=== PATIENT | female | born 1940 ===

== ENCOUNTER 2017-09-05 03:50 | Emergency (ER) | payer MEDICARE ==
[2017-09-05 06:26] LABS: Basophils % (Auto) 0.7 % (0.0-1.8); Eosinophils # (Auto) 0.1 K/mm3 (0.0-0.4); Eosinophils % (Auto) 1.7 % (0.0-4.3); Hematocrit 39.9 % (30.3-42.9); Hemoglobin 13.4 gm/dl (10.1-14.3); Lymphocytes # (Auto) 0.8 K/mm3 (1.2-5.4); Lymphocytes % (Auto) 18.6 % (13.4-35.0); Mean Corpuscular HGB Conc 34 % (30-34); Mean Corpuscular Hemoglobin 32 pg (28-32); Mean Corpuscular Volume 95 fl (79-97); Monocytes # (Auto) 0.5 K/mm3 (0.0-0.8); Platelet Count 179 K/mm3 (140-440); Red Blood Count 4.22 M/mm3 (3.65-5.03); Red Cell Distribution Width 13.6 % (13.2-15.2)
--- NOTE | 2017-09-05 06:34 | Emergency Department Report ---
ED Fall HPI - General Chief Complaint: Fall Stated Complaint: AMS Time Seen by Provider: 09/05/17 06:24 Source: patient, family, EMS (ems notes not available at time of chart dictation), RN notes reviewed Mode of arrival: Stretcher Limitations: Physical Limitation (patient has left knee pain, has difficulty walking.), Other (patient is a poor historian) - History of Present Illness Initial Comments: This is a 77-year-old female who is previously unknown to this provider. Her primary care doctor is Dr. Dowling at [facility] Past medical history includes genital herpes, thyroid disease, sleep disorder. The patient is brought to the hospital by EMS after she fell out of bed in the morning. This was a mechanical fall. Prior to the fall, the patient was not having any symptoms. After the fall she had some confusion and accidentally urinated on herself. The patient currently denies headache, neck pain, abdominal pain, shortness of breath, weakness, numbness, unsteady gait. She complained to the nurse of chest pain but denies a complaint of chest pain to this provider. As per her son, the patient has been mentioning chest pain on and off for the past few weeks. As per the patient's son, there is no vomiting, diaphoresis or shortness of breath. The patient's son cannot describe exacerbating or relieving factors of the pain, and qualitative features of the pain, does not know if the pain radiates. The patient to me states that she is not having any pain. The patient does complain of left knee Pain which does not radiate anywhere. 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 denies: headache, neck pain , numbness, weakness, chest paint, shortness of breath, abdominal pain, hematuria, lightheaded, vertigo, confusion - Related Data Home Medications Medication Instructions Recorded Confirmed Last Taken Acyclovir [Zovirax] 400 mg PO DAILY 09/05/17 09/05/17 Unknown Carvedilol [Coreg] 3.125 mg PO BID 09/05/17 09/05/17 Unknown Dicyclomine [Bentyl] 10 mg PO BID 09/05/17 09/05/17 Unknown Levothyroxine [Synthroid] 88 mcg PO QAM 09/05/17 09/05/17 Unknown Omeprazole 20 mg PO DAILY 09/05/17 09/05/17 Unknown Zolpidem [Ambien] 10 mg PO QHS PRN 09/05/17 09/05/17 Unknown Allergies Allergy/AdvReac Type Severity Reaction Status Date / Time No Known Allergies Allergy Unverified 09/05/17 04:08 ED Review of Systems ROS: Stated complaint: AMS Other details as noted in HPI Comment: All other systems reviewed and negative ED Past Medical Hx - Past Medical History Previous Medical History?: Yes - Surgical History Past Surgical History?: No - Social History Smoking Status: Never Smoker Substance Use Type: Alcohol - Medications Home Medications: Home Medications Medication Instructions Recorded Confirmed Last Taken Type Acyclovir [Zovirax] 400 mg PO DAILY 09/05/17 09/05/17 Unknown History Carvedilol [Coreg] 3.125 mg PO BID 09/05/17 09/05/17 Unknown History Dicyclomine [Bentyl] 10 mg PO BID 09/05/17 09/05/17 Unknown History Levothyroxine [Synthroid] 88 mcg PO QAM 09/05/17 09/05/17 Unknown History Omeprazole 20 mg PO DAILY 09/05/17 09/05/17 Unknown History Zolpidem [Ambien] 10 mg PO QHS PRN 09/05/17 09/05/17 Unknown History ED Physical Exam - General Limitations: No Limitations, Physical Limitation General appearance: alert, in no apparent distress - Head Head exam: Present: atraumatic, normocephalic - Eye Eye exam: Present: normal appearance, EOMI. Absent: nystagmus - ENT ENT exam: Present: normal exam, normal orophraynx, mucous membranes moist, normal external ear exam - Neck Neck exam: Present: normal inspection, full ROM - Respiratory Respiratory exam: Present: normal lung sounds bilaterally. Absent: respiratory distress - Cardiovascular Cardiovascular Exam: Present: regular rate, normal rhythm, normal heart sounds. Absent: bradycardia, tachycardia, irregular rhythm, systolic murmur, diastolic murmur, rubs, gallop - GI/Abdominal GI/Abdominal exam: Present: soft, normal bowel sounds. Absent: distended, tenderness, guarding, rebound, rigid, pulsatile mass - Extremities Exam Extremities exam: Present: normal inspection, tenderness, normal capillary refill, other (there is no long bony tenderness. There is left-sided anterior knee tenderness. The pelvis is stable. The compartments are soft. 2+ pulses noted in the bilateral upper and lower extremities.). Absent: pedal edema, joint swelling, calf tenderness - Back Exam Back exam: Present: normal inspection, full ROM. Absent: paraspinal tenderness , vertebral tenderness - Neurological Exam Neurological exam: Present: alert (visual acuity intact to finger counting, color perception, reading at a close distance), oriented X3, CN II-XII intact, other (Extraocular movements intact. Tongue midline. No facial droop. Facial sensation intact to light touch in the V1, V2, V3 distribution bilaterally. 5 and 5 strength in 4 extremities.. Sensation is intact to light touch in 4 extremities.). Absent: motor sensory deficit - Psychiatric Psychiatric exam: Present: normal affect, normal mood - Skin Skin exam: Present: warm, dry, intact, normal color. Absent: rash ED Course Vital Signs 09/05/17 09/05/17 09/05/17 04:03 05:45 06:00 Temperature 98 F 97.7 F Pulse Rate 78 59 L Respiratory 16 20 20 Rate Blood Pressure 140/82 Blood Pressure 140/65 [Right] O2 Sat by Pulse 94 100 100 Oximetry 09/05/17 09:21 Temperature Pulse Rate 73 Respiratory 16 Rate Blood Pressure Blood Pressure 159/72 [Right] O2 Sat by Pulse 96 Oximetry - Reevaluation(s) Reevaluation #1: 09/05/17 09:00 Case is presented to the community case manager, Miss Sola Ballard, who is going to help arrange outpatient physical therapy. Following is negative 2. Repeat EKG is pending. Urinalysis is pending. Reevaluation #2: 09/05/17 09:33 Vital signs have remained stable. Repeat EKG is unchanged from prior. Troponin is negative 2, the urinalysis does not demonstrate urinary tract infection. There is asymptomatic bacteriuria. Patient has been seen and evaluated by case management, she'll have outpatient physical therapy. She will be discharged at this time, return precautions have been reviewed. ED Medical Decision Making - Lab Data Result diagrams: 09/05/17 06:12 09/05/17 06:12 - EKG Data -: EKG Interpreted by Me EKG shows normal: sinus rhythm, axis, intervals, QRS complexes Rate: normal - EKG Data When compared to previous EKG there are: previous EKG unavailable 09/05/17 08:14 Sinus, 68 bpm, normal axis, normal intervals, motion artifact, poor R wave progression, not consistent with a STEMI. - Radiology Data Radiology results: report reviewed, image reviewed Noncontrast CT scan of the brain, cervical spine negative for acute disease X-ray the chest is negative for acute disease. X-ray the left knee demonstrates a left-sided patellar fracture. - Medical Decision Making Differential diagnosis, including not limited to: Mechanical fall, intracranial injury, cervical spine injury, left knee injury, urinary tract infection, pneumonia, acute coronary syndrome, GERD, gastritis, hiatal hernia, pneumothorax Assessment and plan: 77-year-old female with a primary complaint of fall. Alert and oriented 3, clinically sober, GCS of 15, NIH score of 0 at this time. May be a component of dementia. Noncontrast CT scan of the brain and cervical spine negative. The patient has no recollection of endorsing chest pain. Her son indicates that she's been complaining of chest pain for a few weeks. Troponin negative 1, EKG abnormal 1 without prior for comparison. There are no pulmonary embolus or DVT risk factors and she is low risk by well's criteria. Given that symptoms have been present for weeks without positive troponin, I find the patient to be at low risk for major adverse cardiac event, and I find to be low risk by convention over stratification tools. 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 Repeat EKG and troponin are pending. Urinalysis is pending, repeat EKG and troponin are pending. The left kneecap fracture will be placed in a knee immobilizer. A physical therapy consult has been ordered, and we will discuss with case management/sulfa work. Patient has partial weightbearing status at home with a walker and cane. Critical care attestation.: If time is entered above; I have spent that time in minutes in the direct care of this critically ill patient, excluding procedure time. ED Disposition Clinical Impression: Fall, Patellar fracture, Chest pain Disposition: - TO HOME OR SELFCARE Is pt being admited?: No Does the pt Need Aspirin: No Condition: Good Instructions: Chest Pain (ED) Additional Instructions: Continue current outpatient medications, with the exception of Ambien, which the patient should discontinue. X-rays demonstrated fracture of the left knee. Keep the knee immobilizer placed, weightbearing as tolerated, and follow up with an orthopedist within the next 7-[address] Anaya is a local orthopedist. Please continue physical therapy as recommended. Follow-up with either of the listed cardiology physicians within the next 3-5 Days for the patient's chest pain( Serene Reynoso or Jose Maria) Take Tylenol, 325 mg every 4-6 hours as needed for pain, this can be alternated with ibuprofen, [id number], 200 mg with food. Return to the ER right away with new pain, worsened pain, migration of pain, weakness, numbness, confusion, change in mental status, inability to tolerate liquid feeds. Referrals: PRIMARY CARE, [Primary Care Provider] - 3-5 Days AMARILIS ANAYA MD [Staff Physician] - 3-5 Days DELMY REYNOSO MD [Staff Physician] - 3-5 Days ANNE MARIE FLOREZ MD [Staff Physician] - 3-5 Days
[2017-09-05 06:49] LABS: BUN/Creatinine Ratio 16; Blood Urea Nitrogen 8 mg/dL (7-17); Calcium 9.4 mg/dL (8.4-10.2); Hemolysis Index 5
--- NOTE | 2017-09-05 07:15 | XRay Report ---
FINAL REPORT EXAM: XR CHEST 1V AP HISTORY: fall, ? pna TECHNIQUE: AP portable view(s) of the chest obtained. PRIORS: None. FINDINGS: No mediastinal shift. Cardiac silhouette is not enlarged. No pneumothorax, effusion, or focal pulmonary opacity identified. No displaced rib fracture. IMPRESSION: No acute pulmonary finding or displaced rib fracture identified. Consider additional imaging for worsening/persistent symptoms.
--- NOTE | 2017-09-05 07:18 | XRay Report ---
FINAL REPORT EXAM: XR PELVIS 1-2V HISTORY: fall, leg pain COMPARISONS: None. FINDINGS: AP view of the pelvis Diffuse demineralization. Mild hip and sacroiliac osteoarthrosis. Additional mild degenerative findings seen in the lower lumbar spine and at the pubic symphysis. No displaced fracture. IMPRESSION: No displaced fracture. Sensitivity of fracture detection is decreased by demineralization and degenerative findings. If patient has persistent hip pain, consider MRI.
--- NOTE | 2017-09-05 07:20 | XRay Report ---
FINAL REPORT EXAM: XR KNEE 1-2V LT HISTORY: left knee pain COMPARISONS: None. FINDINGS: AP and lateral views left knee There is a comminuted mildly displaced fracture of the patella. Moderate tricompartmental osteoarthrosis. Vascular calcifications. No left distal femur or proximal tibia or fibular fracture identified. IMPRESSION: Comminuted and mildly displaced fracture of the left patella.
--- NOTE | 2017-09-05 07:25 | Cat Scan Report ---
FINAL REPORT EXAM: CT HEAD/BRAIN WO CON HISTORY: fall TECHNIQUE: CT imaging is acquired through the brain without contrast. Transaxial reformations are provided. PRIORS: None. FINDINGS: Ventricles and CSF spaces are within normal limits for patient age. Scattered deep and subcortical white matter hypodense foci are confluent in some areas and are compatible with microvascular angiopathy. No acute intracranial hemorrhage or mass effect. No skull fracture. No significant abnormality within the imaged paranasal sinuses or mastoid air cells. IMPRESSION: No acute intracranial abnormality. There are chronic sequela of microvascular angiopathy.
--- NOTE | 2017-09-05 07:32 | Cat Scan Report ---
FINAL REPORT EXAM: CT CERVICAL SPINE WO CON HISTORY: fall TECHNIQUE: CT imaging is acquired through the cervical spine without contrast. Transaxial, coronal and sagittal reformations are provided. PRIORS: None. FINDINGS: Diffuse demineralization. The cervical spine appears intact. There is diffuse moderate intervertebral disc space narrowing with associated endplate remodeling and spondylosis. Vertebral body heights are otherwise preserved. Reversal of normal cervical lordosis is centered at C5. No acute fracture identified. Atlanto-dens interval and odontoid process are intact. No perivertebral soft tissue swelling or hematoma identified. Limited soft tissue exam of the visualized neck is remarkable for carotid calcifications. Biapical pulmonary scarring and centrilobular emphysema are noted. IMPRESSION: No acute cervical spine fracture identified. Sensitivity of fracture detection is decreased by demineralization and degenerative findings. Correlate with physical exam and follow up as warranted.
[2017-09-05 09:14] LABS: Bacteria,Urine 1+ /HPF (Negative); Bilirubin,Urine NEG (Negative); Blood,Urine NEG (Negative); Color,Urine Yellow (Yellow); Mucus,Urine FEW /HPF; Protein,Urine <15 mg/dL mg/dL (Negative); Urobilinogen,Urine < 2.0 mg/dL (<2.0)
[2017-09-05 09:22] VITALS: BP 159/72
== END 2017-09-05 10:20 | disposition home or self-care (01) ==
LOC: ED 03:50
DX: S82.092A Other fracture of left patella, initial encounter for closed fracture (principal); R07.9 Chest pain, unspecified; Z86.19 Personal history of other infectious and parasitic diseases; W06.XXXA Fall from bed, initial encounter; Y93.89 Activity, other specified; Y99.8 Other external cause status; Y92.009 Unspecified place in unspecified non-institutional (private) residence as the place of occurrence of the external cause
CPT/HCPCS: 36415; 70450; 71045; 72125; 72170; 80048; 81001; 82550; 84484; 85025; 87076; 87086; 87186; 93005; 93010